=== PATIENT | female | born 1955 | race African-American/Black ===

== ENCOUNTER 2022-12-28 11:01 | Emergency (ER) | payer OTHER ==
[~2022-12-28] VITALS: Ht 162.6 cm; Wt 62.0 kg
[2022-12-28 11:15] VITALS: O2SAT 95
[2022-12-28] MEDS ORDERED: FLUORESCEIN SODIUM 1MG/STRIP BOTHEYE ONE (12:45)
[2022-12-28] MEDS ORDERED: TETRACAINE 0.5% OPHTH DROPS 4ML BOTHEYE ONE (12:45)
[2022-12-28] MEDS ORDERED: ERYT1OIN6 LEFTEYE (14:08)
[2022-12-28] MEDS ORDERED: CETI-338 PO (14:08)
[2022-12-28 14:39] VITALS: BP 140/87; PULSE 101; RESP 18; TEMP 97.8
== END 2022-12-28 14:41 | disposition home or self-care (01) ==
LOC: ER 11:01
DX: S05.02XA Injury of conjunctiva and corneal abrasion without foreign body, left eye, initial encounter (principal); X58.XXXA Exposure to other specified factors, initial encounter; Y93.89 Activity, other specified; Y92.89 Other specified places as the place of occurrence of the external cause; Y99.8 Other external cause status
CPT/HCPCS: 99283